=== PATIENT | female | born 1950 | race Caucasian/White ===

== ENCOUNTER 2020-03-01 19:02 | Inpatient (IN) | payer BC, MEDICARE, OTHER ==
[~2020-03-01] VITALS: Ht 154.9 cm; Wt 42.6 kg
[~2020-03-01 19:02] MED LIST: ACET325T53 PO; BACI3.5O23 EACHEYE; BISA10SU95 RC; MAGN400O6 PO; ONDA4VIA52 IV
--- NOTE | 2020-03-01 19:27 | NUR ---
at bedside for assessment
[2020-03-01] MEDS ORDERED: SENN-261 PO (19:31)
[2020-03-01] MEDS ORDERED: OLAN10TA23 PO (19:31)
[2020-03-01] MEDS ORDERED: LIDO1ADH44 TP (19:31)
[2020-03-01] MEDS ORDERED: DOCU100C36 PO (19:31)
[2020-03-01] MEDS ORDERED: MULT-594 PO (19:31)
[2020-03-01] MEDS ORDERED: HYDR-4354 PO (19:31)
[2020-03-01] MEDS ORDERED: OLAN5TAB3 PO (19:31)
--- NOTE | 2020-03-01 21:39 | NUR ---
Patient assisted to restroom at this time, no signs of acute distress noted at this time
[2020-03-01] MEDS ORDERED: MAGNESIUM HYDROXIDE 30 ML LIQUID UDC PO PRN (22:15)
[2020-03-01] MEDS ORDERED: BISACODYL 10 MG SUPP.RECT RC PRN (22:15)
--- NOTE | 2020-03-01 23:46 | NUR ---
Report given to [facility] RN, no signs of acute distress noted
[2020-03-02] MEDS ORDERED: ACETAMINOPHEN 325 MG TABLET PO SCH
[2020-03-02] MEDS ORDERED: ACETAMINOPHEN 325 MG TABLET PO PRN (00:15)
[2020-03-02] MEDS ORDERED: TEMAZEPAM 7.5 MG CAPSULE PO PRN (00:15)
[2020-03-02] MEDS ORDERED: MAG HYDROX/AL HYDROX/SIMETH 30 ML LIQUID UDC PO PRN (00:15)
[2020-03-02] MEDS ORDERED: MAGNESIUM HYDROXIDE 30 ML LIQUID UDC PO PRN (00:15)
--- NOTE | 2020-03-02 00:15 | NUR ---
Pt. admitted to [facility] psych , under care of Dr. Lott Belongs List completed and all belongings sent with patient
[2020-03-02 00:22] VITALS: BP 121/82
--- NOTE | 2020-03-02 00:30 | NUR ---
GPS ADMISSION NOTE: Patient is a 69 year old female, brought in to the Hospital by ambulance, admitted on a 5150 from [facility], prior to that , patient was living at home with her . Patient admitted on a 5150 for GD. Per hold, patient stopped eating , has not been taking medication and thinks that the food is poisonous. Upon face to face evaluation, this patient appears to be alert and oriented , when in fact she is confused. During the evaluation, patient would make statements about ' I need to go to the other hospital to let them fix my blood". When asked if she knows why she is here, patient stated " I am here to get my stomach fixed". Patient was then reoriented to the reality of the situation. Patients appearance is disheveled with uncombed hair and smells of urine. Shower was offered which patient adamantly refused at this time. Staff assisted patient to the bathroom to obtain a urine specimen. At that time patient claimed she could not walk, but seemed to be walking fine. Walker provided to patient for safety. During the interview process patient was delusional and paranoid. Sock Liner provided the Patients Rights Handbook and the Advisement. Oriented patient to the environment, phone and room. Orders received from the Psychiatrist Dr. Willis and the POPULATION HEALTH COACH for the Epic group Sandy Zee. Patients VS are stable, weight noted to be 95 lbs. Valuables are locked in the safe. Patient denies SI and HI. Monitoring patient for safety and any needs she might have. No acute behavioral issues at this time.
[2020-03-02 01:08] LABS: *BILIRUBIN,URIN NEGATIVE (NEGATIVE); *CLARITY,URINE CLEAR (CLEAR); *COLOR,URINE YELLOW (YELLOW); *KETONES,URINE NEGATIVE (NEGATIVE); LEUKOCYTE ESTERASE ,URINE NEGATIVE (NEGATIVE); NITRITE, URINE NEGATIVE (NEGATIVE); UGLUCOSE NEGATIVE (NEGATIVE)
[2020-03-02 01:23] LABS: *BLOOD, URINE TRACE INTACT (NEGATIVE)
[2020-03-02] MEDS ORDERED: CLONAZEPAM 0.5 MG TABLET PO PRN (02:00)
[2020-03-02 02:50] LABS: BACTERIA,URINE NONE SEEN /HPF (NONE SEEN); WBC,URINE 0-3 /HPF (0-3)
[2020-03-02 07:30] VITALS: BP 111/54
[2020-03-02 08:53] LABS: BASOPHILS % (AUTO) 0.5 % (0.0-2.0); EOSINOPHILS # (AUTO) 0.1 K/uL (0.0-0.7); EOSINOPHILS % (AUTO) 0.7 % (0.0-7.0); HEMATOCRIT 36.8 % (31.2-41.9); HEMOGLOBIN 13.6 g/dL (10.9-14.3); LYMPHOCYTES # (AUTO) 2.5 K/uL (20.0-40.0); LYMPHOCYTES % (AUTO) 34.8 % (20.5-51.5); MEAN CORPUSCULAR HEMOGLOBIN 31.8 uug (24.7-32.8); MEAN CORPUSCULAR HGB CONC 37 g/dL (32.3-35.6); MEAN CORPUSCULAR VOLUME 86.1 fL (75.5-95.3); MONOCYTES # (AUTO) 0.8 K/uL (2.0-10.0); MONOCYTES % (AUTO) 11.8 % (0.0-11.0); NEUTROPHILS # (AUTO) 3.7 K/uL (1.8-8.9); NEUTROPHILS % (AUTO) 52.2 % (38.5-71.5); PLATELET COUNT (AUTO) 413 K/uL (179-408); RED BLOOD CELL COUNT(AUTO) 4.27 MIL/uL (3.63-4.92); WHITE BLOOD COUNT (AUTO) 7.2 K/uL (3.8-11.8)
[2020-03-02] MEDS: MULTIVITAMINS,THERAPEUTIC TABLET PO SCH (09:00)
[2020-03-02] MEDS: DOCUSATE SODIUM 100 MG CAPSULE PO SCH (09:00)
[2020-03-02 09:10] LABS: CARBON DIOXIDE 30 mmol/L (21-32); CHLORIDE 104 mmol/L (98-107); CREATININE 0.8 mg/dL (0.6-1.3); GLUCOSE 98 mg/dL (74-106); MAGNESIUM 1.7 mg/dL (1.8-2.4); PHOSPHOROUS 4.2 mg/dL (2.5-4.9); POTASSIUM 2.9 mmol/L (3.5-5.1); UREA NITROGEN, BLOOD < 1 mg/dL (7-18)
[2020-03-02 09:19] LABS: THYROID STIMULATING HORMONE 0.627 mIU/mL (0.358-3.740)
--- NOTE | 2020-03-02 10:47 | NUR ---
Family Contact: SW called the pts , Johnathan ([phone]), and confirmed that the pt lives at home with him and that he would be able to pick her up at the time of discharge. SW informed him that she would be speaking to UR case management today and that she will get back to him regarding pts discharge date.
--- NOTE | 2020-03-02 10:56 | NUR ---
UR Note: BECCA called [facility] Senior Case Management Line ([phone]) regarding the pts review being due today. BECCA left a voicemail stating that she needs the assigned rn case manager hospice to call her so that the SW can conduct the pts review.
--- NOTE | 2020-03-02 11:46 | NUR ---
Initial Discharge Plan: Pt currently resides with her in their home located at [address] [place] [address]; ([phone]). Per pt, she would like to return to her home. SW will work with the pt and the MD regarding appropriate discharge planning. SW will form a safe and proper discharge.
[2020-03-02] MEDS: ENSURE ENLIVE (VAN) 240 ML LIQUID PO SCH ×2 (12:17→17:00)
[2020-03-02] MEDS ORDERED: POTASSIUM CHLORIDE 20 MEQ TAB.PRT.SR PO ONE (12:45)
[2020-03-02] MEDS ORDERED: MAGNESIUM OXIDE 400 MG TABLET PO ONE (12:45)
--- NOTE | 2020-03-02 14:21 | NUR ---
Firearms Report: Professional Services Specialist completed and submitted a [employer] firearms report for 5150 DTO/DTS/grave disability certification. A copy of report has been placed in patient chart.
--- NOTE | 2020-03-02 15:02 | NUR ---
Individual Intervention with the Pt: SW expressed to the pt that Dr. Willis does not think that her is the reason that she is being hospitalized. Pt has been screaming for the phone and has been stating that the MD thinks her is at fault and the SW repeatedly assured her that was not the case. SW asked the pt to listen to her and process what she is saying as she stated that the pt is not hospitalized due to her .
[2020-03-02 15:41] VITALS: BP 123/63
[2020-03-02] MEDS: OLANZAPINE ZYDIS 5 MG TAB.RAPDIS PO SCH ×2 (17:15→20:45)
[2020-03-02 20:39] VITALS: BP 110/50
--- NOTE | 2020-03-03 01:45 | NUR ---
Patient continue refusing Zyprexa [facility]. She was provided with education about the importance of taking prescribed medication to improved her sxs. we will continue to monitor. Addendum: 03/04/20 at 0149 by LIOR JACINTO RN wrong time. right time is 03/03/2020 at 2200
[2020-03-03 07:30] VITALS: BP 142/49
[2020-03-03] MEDS: ENSURE ENLIVE (VAN) 240 ML LIQUID PO SCH ×3 (09:00→17:00)
[2020-03-03] MEDS: OLANZAPINE ZYDIS 5 MG TAB.RAPDIS PO SCH ×2 (09:00→23:22)
[2020-03-03] MEDS: DOCUSATE SODIUM 100 MG CAPSULE PO SCH (09:00)
[2020-03-03] MEDS: MULTIVITAMINS,THERAPEUTIC TABLET PO SCH (09:00)
[2020-03-03] MEDS: POTASSIUM CHLORIDE 20 MEQ TAB.PRT.SR PO SCH ×6 (10:00→14:46)
--- NOTE | 2020-03-03 11:05 | NUR ---
UR Note: SW received a call from [facility] heel caser, Chelo ([phone]), who asked the SW to fax the pts clinical to the fax number: [phone]. She stated that she would call the SW back with an authorization update.
--- NOTE | 2020-03-03 11:06 | NUR ---
UR Note: BECCA faxed a clinical to Bola Juárez with attention to Chelo to the fax number: [phone].
--- NOTE | 2020-03-03 11:15 | NUR ---
Individual Intervention: SW attempted to speak to the pt after the SW heard the pt shouting, "Where is the big fat pig?" multiple times. Pt presented as rude and belligerent. SW was unable to engage with the pt at this time.
--- NOTE | 2020-03-03 11:30 | NUR ---
Family Contact: SW called the pts , Johnathan ([phone]), and informed him that the pt has not been taking her medications and SW asked if he can have a conversation with her as he is the only person that she trusts. Pts stated that this is her main issue and that is why she needs help. Pts then stated that he wants her to sign certain business documents and the SW stated that the pt cannot sign papers while she is on a hold at this time.
--- NOTE | 2020-03-03 11:40 | NUR ---
patient in bed complaining about pain, and verbalizes " i coudnt breath in" VS 124/51 P66 R20 PO2 98, patient states that the machine will tell normal, patient consistently complaining with pain however refusing all medication,calmly spoke with the patient and tried to calm her down, will continue monitor
[2020-03-03] MEDS ORDERED: MAGNESIUM OXIDE 400 MG TABLET PO ONE (12:45)
--- NOTE | 2020-03-03 13:28 | NUR ---
GPS: Nursing Notes: Non-compliance With Medications: Patient is awake and responding to her name, impaired judgement, continue with somatic complaints in order to refuse her medications and refusing to eat her meals, believes that we are trying to poison her, c/o of stomach upset, but refusing to take Mylanta, shouting at staff, "I am not going to take anything..", continue to be argumentative, at this time patient on bed resting, denies any discomfort or pain, V/S WNL, explained the pros or cons of her medication, but continue to refuse her medication, unable to formulate a viable plan for self care, resistant with nursing care, continue with treatment plan.
[2020-03-03 16:32] VITALS: BP 132/53
--- NOTE | 2020-03-03 20:00 | NUR ---
Received patient in bed. She is noted awake, A/O x 3. she is noted easily Irritable, tangental, uncooperative. Poor insight and judgment is noted as to the reason for her admission to [facility]. Pt denies SI/HI/VH/AH. V/S stable at this time. Pt is reassured for her safety. safety and fall precaution in place. will continue to monitor.
[2020-03-03 20:01] VITALS: BP 118/50
--- NOTE | 2020-03-03 22:00 | NUR ---
Patient continue refusing Zyprexa QHS. She was provided with education about the importance of taking prescribed medication to improved her sxs. we will continue to monitor.
--- NOTE | 2020-03-03 22:25 | NUR ---
Patient called this gag writer and stated, "Bring the medication, I will take it. I know if i don't take it I will be in more trouble". patient was able to comply with Risperdal QHS. will continue to monitor.
[2020-03-04 07:30] VITALS: BP 120/51
[2020-03-04 08:59] LABS: MAGNESIUM 1.8 mg/dL (1.8-2.4); POTASSIUM 3.4 mmol/L (3.5-5.1)
[2020-03-04] MEDS: ENSURE ENLIVE (VAN) 240 ML LIQUID PO SCH ×3 (09:00→17:00)
[2020-03-04] MEDS: MULTIVITAMINS,THERAPEUTIC TABLET PO SCH (09:00)
[2020-03-04] MEDS: DOCUSATE SODIUM 100 MG CAPSULE PO SCH (09:00)
[2020-03-04] MEDS: OLANZAPINE ZYDIS 5 MG TAB.RAPDIS PO SCH ×2 (09:00→21:00)
--- NOTE | 2020-03-04 10:47 | NUR ---
UR Note: SW received a call from [facility] case loader operator, Chelo ([phone]), and she stated that she will authorize until 03/05/20 with a review due on 03/06/20 if needed.
[2020-03-04] MEDS ORDERED: POTASSIUM CHLORIDE 20 MEQ TAB.PRT.SR PO ONE (11:15)
[2020-03-04 16:00] VITALS: BP 111/72
--- NOTE | 2020-03-04 20:00 | NUR ---
Received patient in her room in bed. She is noted awake A/O x 2. She is noted easily irritable, verbally aggressive, paranoid ideation, pt stated, "They gave me rotten fish today and that is why i fee very bad". "why they do that". Patient was reassured and redirected. she is hard to redirect. Mood is irritable, affect is blunted. V/S stable. patient is reassured for her safety. safety and fall precaution in place. will continue to monitor.
[2020-03-04 20:05] VITALS: BP 118/44
--- NOTE | 2020-03-04 22:15 | NUR ---
Pt. continue refusing Zyprexa 5mg QHS Pt was provided with education about the important of taking prescribed medication to improve SXS. however, she continue refusing. she continue fixed about been given rotten fish for dinner. Pt is reassured for her safety and redirected. will continue to monitor.
--- NOTE | 2020-03-05 07:13 | NUR ---
Patient slept for approx 6.30 hrs through the night. continue easily irritable. fixed on someone given rotten fish for dinnjer. pt is reassured. will continue to monitor.
[2020-03-05 07:30] VITALS: BP 140/69
[2020-03-05] MEDS: ENSURE ENLIVE (VAN) 240 ML LIQUID PO SCH ×3 (09:00→17:00)
[2020-03-05] MEDS: DOCUSATE SODIUM 100 MG CAPSULE PO SCH (09:00)
[2020-03-05] MEDS: OLANZAPINE ZYDIS 5 MG TAB.RAPDIS PO SCH ×3 (09:00→21:51)
[2020-03-05] MEDS: MULTIVITAMINS,THERAPEUTIC TABLET PO SCH (09:00)
[2020-03-05] MEDS ORDERED: OLANZAPINE 10 MG VIAL IM PRN (12:00)
--- NOTE | 2020-03-05 13:45 | NUR ---
Gps/Radiologic Technician- Labile mood, loud yelling at the web content writer , reoffered her zyprexa zydis as previously schedules this am, , refusing to take IM zyprexa" i will nener take any injections from an evil person like you", reviewed with pt. improtance of her medication . Refusing to eat , claimed her stomach hurts, because staff are forcing her to eat spoiled rotten foods , per pt. Patient curled up in bed, claimed r/t to stomach pain, offered foods she wants , claimed will note eat or take anything from the web content writer.
[2020-03-05 16:24] VITALS: BP 143/65
--- NOTE | 2020-03-05 17:48 | NUR ---
Gps/Corporate Trainer- Remains in bed. refusing to eat., refusing routine meds.
--- NOTE | 2020-03-06 05:20 | NUR ---
Received patient last night in the bed, complaining about the food being poisoned, and the medications are " Making a big sore in my mouth". Patient was offered a snack but rejected it. After some time , patient did take the psychiatric medication but was angry and irritable the whole time . Patient was calling inspector automatic typewriter and other staff members names. This patient appears to be very delusional and paranoid at this time. Continuing to monitor for safety, food intake and medication compliance. No acute distress.
[2020-03-06 07:30] VITALS: BP 139/58
[2020-03-06] MEDS: ENSURE ENLIVE (VAN) 240 ML LIQUID PO SCH ×3 (08:48→17:00)
[2020-03-06] MEDS: DOCUSATE SODIUM 100 MG CAPSULE PO SCH (08:48)
[2020-03-06] MEDS: MULTIVITAMINS,THERAPEUTIC TABLET PO SCH (08:48)
[2020-03-06] MEDS: OLANZAPINE ZYDIS 5 MG TAB.RAPDIS PO SCH ×2 (09:21→20:23)
--- NOTE | 2020-03-06 11:39 | NUR ---
UR Note: BECCA faxed a clinical to [facility]ola Juárez with attention to Chelo to the fax number: [phone].
[2020-03-06 15:20] VITALS: BP 99/48
[2020-03-06 19:52] VITALS: BP 117/46
--- NOTE | 2020-03-07 03:05 | NUR ---
Received patient in her room, complaining about the food , the care and just about everything she could think of. Patient was however compliant with her Psychiatric medication only ,but it was 30 minutes of paranoia and delusional talking to achieve the goal. Patient yells at staff and refuses to get out of bed to the chair or to use the bathroom. Continuing to encourage self care and ambulation. Monitoring behavior escalation and safety. No acute issues at this time. Appetite is poor, but did improve slightly today.
[2020-03-07 07:30] VITALS: BP 122/51
[2020-03-07] MEDS: OLANZAPINE ZYDIS 5 MG TAB.RAPDIS PO SCH ×2 (08:15→20:29)
[2020-03-07] MEDS: DOCUSATE SODIUM 100 MG CAPSULE PO SCH (09:00)
[2020-03-07] MEDS: ENSURE ENLIVE (VAN) 240 ML LIQUID PO SCH ×3 (09:00→17:00)
[2020-03-07] MEDS: MULTIVITAMINS,THERAPEUTIC TABLET PO SCH (09:00)
--- NOTE | 2020-03-07 10:52 | NUR ---
Received patient in her room, grumpy, paranoid and having delusional thought of that the medication giving her some side effect that making her shaking, however with her VS WNL BP 122/51, P 66 R 18 T 98, patient needed prompting , however refused other medication like vitamins patient also refused her breakfast but said that she ate dinner and lunch yesterday, MD aware, will continue monitor
--- NOTE | 2020-03-07 12:50 | NUR ---
Patient getting anxious don't want her medication to be change , patient is argumentative, patient complaining of having stomach pain, but refusing to eat, patient believes that the food makes her sick , patient wants the remote mortgage underwriter not to write the notes
[2020-03-07 16:00] VITALS: BP 142/43
--- NOTE | 2020-03-07 18:03 | NUR ---
patient ate 75% of her dinner tray however still verbalizing that she is being poisoned and ask the nurse to smell the soup , patient is shouting and yelling needs redirection and prompting
[2020-03-07 20:00] VITALS: BP 107/71
--- NOTE | 2020-03-08 04:10 | NUR ---
Received patient at the beginning of the shift laying in bed. As sheet writer approached the patient, she begun with the delusions. Making statements " The soup was poisoned with bug spray. I ate it and now I am going to ". This kind of banter continued for a while and when sheet writer attempted to redirect and distract the patient from her fixed delusions, patient begun to yell " You do not know what your talking about. Get your stories straight kristen". Junior Copywriter proceeded to encourage medication compliance and eventually the patient took the Psychiatric medication only. Monitoring this patients behavior escalation, medication compliance and for safety at this time. Patient did proceed to sleep a good portion of the night after that.
[2020-03-08 07:30] VITALS: BP 110/63
[2020-03-08] MEDS: OLANZAPINE ZYDIS 5 MG TAB.RAPDIS PO SCH ×2 (08:41→21:14)
[2020-03-08] MEDS: MULTIVITAMINS,THERAPEUTIC TABLET PO SCH (08:42)
[2020-03-08] MEDS: DOCUSATE SODIUM 100 MG CAPSULE PO SCH (08:42)
[2020-03-08] MEDS: ENSURE ENLIVE (VAN) 240 ML LIQUID PO SCH ×3 (08:42→17:00)
[2020-03-08 15:14] VITALS: BP 93/63
--- NOTE | 2020-03-08 20:00 | NUR ---
Received patient in her room. She is noted awake A/O x 3. She is noted easily irritable, sarcastic, suspicious, paranoid, guarded, yelling a times. Upon interview, She stated, "They gave me crab for dinner and it was bad, it made me sick". Patient requires multiple redirections and reassurance. V/S stable. She is being reassured for her safety. V/S stable. safety and fall precaution in place. will continue to monitor.
[2020-03-08 20:10] VITALS: BP 108/53
[2020-03-09 07:30] VITALS: BP 117/66
--- NOTE | 2020-03-09 07:36 | NUR ---
patient slept for approx 7 hrs through the night. She refused Blood Drawn. pt was educated on the importance of labs, yet refused. will attempt later.
[2020-03-09] MEDS: OLANZAPINE ZYDIS 5 MG TAB.RAPDIS PO SCH ×2 (08:38→20:17)
[2020-03-09] MEDS: MULTIVITAMINS,THERAPEUTIC TABLET PO SCH (08:38)
[2020-03-09] MEDS: DOCUSATE SODIUM 100 MG CAPSULE PO SCH (08:38)
[2020-03-09] MEDS: ENSURE ENLIVE (VAN) 240 ML LIQUID PO SCH ×3 (08:39→17:14)
--- NOTE | 2020-03-09 09:38 | NUR ---
UR Note: SW received a call from [facility] case making machine operator, Chelo ([phone]) and sent pt's clinicals.
[2020-03-09 14:41] LABS: BASOPHILS % (AUTO) 0.5 % (0.0-2.0); EOSINOPHILS # (AUTO) 0.1 K/uL (0.0-0.7); EOSINOPHILS % (AUTO) 1.5 % (0.0-7.0); HEMATOCRIT 42.1 % (31.2-41.9); HEMOGLOBIN 14.4 g/dL (10.9-14.3); LYMPHOCYTES # (AUTO) 2.3 K/uL (20.0-40.0); LYMPHOCYTES % (AUTO) 46.5 % (20.5-51.5); MEAN CORPUSCULAR HEMOGLOBIN 30.3 uug (24.7-32.8); MEAN CORPUSCULAR HGB CONC 34 g/dL (32.3-35.6); MEAN CORPUSCULAR VOLUME 89.1 fL (75.5-95.3); MONOCYTES # (AUTO) 0.6 K/uL (2.0-10.0); MONOCYTES % (AUTO) 11.7 % (0.0-11.0); NEUTROPHILS # (AUTO) 1.9 K/uL (1.8-8.9); NEUTROPHILS % (AUTO) 39.8 % (38.5-71.5); PLATELET COUNT (AUTO) 233 K/uL (179-408); RED BLOOD CELL COUNT(AUTO) 4.73 MIL/uL (3.63-4.92); WHITE BLOOD COUNT (AUTO) 4.9 K/uL (3.8-11.8)
[2020-03-09 15:21] LABS: BILIRUBIN,TOTAL 0.4 mg/dL (0.2-1.0); CREATININE 0.8 mg/dL (0.6-1.3); MAGNESIUM 2.4 mg/dL (1.8-2.4)
--- NOTE | 2020-03-09 18:50 | NUR ---
patient still needed prompting with her medication,remains agitated at time,will continue close monioring.
[2020-03-09 20:36] VITALS: BP 111/54
[2020-03-10 07:30] VITALS: BP 131/77
[2020-03-10] MEDS: OLANZAPINE ZYDIS 5 MG TAB.RAPDIS PO SCH ×2 (08:28→21:59)
[2020-03-10] MEDS: DOCUSATE SODIUM 100 MG CAPSULE PO SCH (09:00)
[2020-03-10] MEDS: MULTIVITAMINS,THERAPEUTIC TABLET PO SCH (09:00)
[2020-03-10] MEDS: ENSURE ENLIVE (VAN) 240 ML LIQUID PO SCH ×3 (09:00→16:41)
--- NOTE | 2020-03-10 11:11 | NUR ---
UR Note: SW received a call from [facility] case liner, Chelo ([phone]) authorized until 03/15/2020 and will require clinical review.
[2020-03-10 16:30] VITALS: BP 126/79
--- NOTE | 2020-03-10 16:57 | NUR ---
patient still needed prompting with her medication,only took Zyprexa Zydis remains agitated at time,will continue close monitoring.
[2020-03-10] MEDS: BOOST PLUS 237 ML LIQUID (RICH CHOCOLATE) PO SCH (17:00)
[2020-03-10 20:12] VITALS: BP 108/56
--- NOTE | 2020-03-10 23:03 | NUR ---
GPS: Pt.remains with poor intake/appetite. Less irritable when approached but continues to look suspicious and paranoid. Took bedtime med.as ordered with little persuasion from staff. Fall precautions observed. Will continue to monitor behavior.
[2020-03-11 07:30] VITALS: BP 131/72
[2020-03-11] MEDS: BOOST PLUS 237 ML LIQUID (RICH CHOCOLATE) PO SCH ×3 (08:00→17:00)
[2020-03-11] MEDS: OLANZAPINE ZYDIS 5 MG TAB.RAPDIS PO SCH ×2 (08:30→21:43)
[2020-03-11] MEDS: ENSURE ENLIVE (VAN) 240 ML LIQUID PO SCH ×3 (08:33→17:14)
[2020-03-11] MEDS: MULTIVITAMINS,THERAPEUTIC TABLET PO SCH (08:33)
[2020-03-11] MEDS: DOCUSATE SODIUM 100 MG CAPSULE PO SCH (08:33)
[2020-03-11 16:00] VITALS: BP 129/78
--- NOTE | 2020-03-11 18:15 | NUR ---
patient is irritable took zyprexa only, Remains isolative and withdrawn. up to daisy-chairNo plan to hurt self.
[2020-03-11 20:25] VITALS: BP 119/63
[2020-03-11] MEDS: MIRTAZAPINE 15 MG TABLET PO SCH (21:43)
--- NOTE | 2020-03-11 22:25 | NUR ---
Patient still requires prompting with her medication,remains agitated and easily irritable. will continue to monitor.Remains isolative and withdrawn. Patient denies SI will continue to monitor.
[2020-03-12 07:30] VITALS: BP 130/73
[2020-03-12] MEDS: BOOST PLUS 237 ML LIQUID (RICH CHOCOLATE) PO SCH ×3 (08:00→17:00)
[2020-03-12] MEDS: DOCUSATE SODIUM 100 MG CAPSULE PO SCH (08:54)
[2020-03-12] MEDS: ENSURE ENLIVE (VAN) 240 ML LIQUID PO SCH ×3 (08:54→17:00)
[2020-03-12] MEDS: MULTIVITAMINS,THERAPEUTIC TABLET PO SCH (08:54)
[2020-03-12] MEDS: OLANZAPINE ZYDIS 5 MG TAB.RAPDIS PO SCH ×2 (08:59→21:57)
--- NOTE | 2020-03-12 12:41 | NUR ---
UR Note: SW received a call from [facility] rehabilitation case coordinator, Chelo ([phone]) authorized for two days. Auth #[id number]
--- NOTE | 2020-03-12 12:59 | NUR ---
Gps/Food And Beverage Order Clerk-Patient talking to her on the phone telling him, staff is giving her poison drinks. Encouraged to drink more fluids, claimed oral mucosa very dry . , complained that STARCH TREATING ASSISTANT scrubbing her gums/teeth hard that peeling her enamel from her teeth. Good oral care was encouraged and rendered, Showered patient this am, kept up on her chair, ate lunch small amount but able to eat her ice cream Safety reviewed emphasized..
[2020-03-12 16:10] VITALS: BP 121/58
[2020-03-12 20:00] VITALS: BP 128/63
[2020-03-12] MEDS: MIRTAZAPINE 15 MG TABLET PO SCH (21:00)
[2020-03-13 07:30] VITALS: BP 107/65
[2020-03-13] MEDS: BOOST PLUS 237 ML LIQUID (RICH CHOCOLATE) PO SCH ×3 (08:00→12:56)
--- NOTE | 2020-03-13 08:50 | NUR ---
Gps/Truck Unloader- Asleep, awakened for breakfast, claimed not hungry will try to eat in a while . Routine am meds. refused, , will re- offer after breakfast.
[2020-03-13] MEDS: DOCUSATE SODIUM 100 MG CAPSULE PO SCH (09:00)
[2020-03-13] MEDS: ENSURE ENLIVE (VAN) 240 ML LIQUID PO SCH ×3 (09:00→17:19)
[2020-03-13] MEDS: MULTIVITAMINS,THERAPEUTIC TABLET PO SCH (09:00)
[2020-03-13] MEDS: OLANZAPINE ZYDIS 5 MG TAB.RAPDIS PO SCH ×2 (09:53→20:29)
--- NOTE | 2020-03-13 09:58 | NUR ---
BECCA Coordination of Care: Patient will be following up with primary care physician at [address] [address] ([phone]) with Daniella Silvestre and has an appointment scheduled on 03/17/20 at 12:30pm via telehealth and will manage the patients psychotropic medications and will refer the patient for outpatient psychiatry.
--- NOTE | 2020-03-13 12:12 | NUR ---
UR Note: BECCA sent clinicals [facility] onsite case manager, Chelo ([phone]) for review and left a voicemail. Auth #[id number]
--- NOTE | 2020-03-13 13:04 | NUR ---
SW Family Contact: This insurance underwriter spoke with pt's Johnathan ([phone]) and discussed discharge and treatment plan. agreed to crop picker pt Friday 03/16 at 12PM.
[2020-03-13 16:00] VITALS: BP 126/67
--- NOTE | 2020-03-13 17:00 | NUR ---
Gps/Power Shovel Operator Helper- remains isolative, stays in bed most of the day, refused to attend her group, prompted and encouraged to take her routine meds. remains paranoid about her foods, and liquids. someone is trying to put poison, has bitter taste, he stomach hurts per pt.encouraged to eat, food of her choice was offered., ref.
[2020-03-13 20:00] VITALS: BP 100/73
[2020-03-13] MEDS: MIRTAZAPINE 15 MG TABLET PO SCH (20:32)
--- NOTE | 2020-03-13 22:00 | NUR ---
PATIENT WAS ABLE TO COMPLY WITH ZYPREXA 10MG PO QHS (PT IS REISE). HOWEVER, SHE CONTINUE REFUSING REMERON 15MG PO PRN. SHE CONTINUE WITH PARANOID IDEATION THAT STAFF IS TRYING TO POISON HER. PT REQUIRED MULTIPLE REDIRECTIONS AND REASSURANCE. PO FLUIDS AND SNACKS WERE OFFERED, PT ONLY TOOK SOME WATER. WILL CONTINUE TO MONITOR.
[2020-03-14 07:30] VITALS: BP 121/71
[2020-03-14] MEDS: BOOST PLUS 237 ML LIQUID (RICH CHOCOLATE) PO SCH ×3 (08:00→17:00)
[2020-03-14] MEDS: MULTIVITAMINS,THERAPEUTIC TABLET PO SCH (09:00)
[2020-03-14] MEDS: DOCUSATE SODIUM 100 MG CAPSULE PO SCH (09:00)
[2020-03-14] MEDS: ENSURE ENLIVE (VAN) 240 ML LIQUID PO SCH ×3 (09:00→17:00)
[2020-03-14] MEDS: OLANZAPINE ZYDIS 5 MG TAB.RAPDIS PO SCH ×2 (10:17→21:06)
--- NOTE | 2020-03-14 12:16 | NUR ---
PT LYING IN BED AT THIS TIME SPEAKING TO ON THE PHONE. PT IS REQUESTING A NEW WATER BOTTLE. INFORMED PT THAT THEIR ARE 5 WATER BOTTLES ON HER TABLE, ALL ALMOST BRAND NEW WITH MAYBE A SIP TAKEN FROM EACH ONE, AND WE CANNOT KEEP GIVING HER WATER BOTTLES WHEN THEIR ARE MULTIPLE BOTTLES AVAILABLE TO HER ON HER TABLE. PT REMAINS PARANOID, INSISTING STAFF IS POISONING HER. PT GAVE THE PHONE TO THIS EMERGENCY MEDICINE SPECIALIST TO SPEAK TO HER . PT'S BEGAN YELLING AT EMERGENCY MEDICINE SPECIALIST, STATING "JUST GIVE HER A NEW ONE! I'LL PAY FOR IT!" INFORMED TO THE WE CANNOT KEEP GIVING PT A NEW BOTTLE EVERY TIME PT TAKES A SIP OF ONE. PT'S THEN THREATENED TO CALL THE POLICE. NURSING ENVIRONMENTAL INSPECTOR AWARE.
--- NOTE | 2020-03-14 13:20 | NUR ---
Pt is noted to be paranoid and believing food and drinks are contaminated. pt has been opening water bottles and then asking the staff for other water bottles saying the water is old and has been open for days. Patient was given a fresh bottle water with date and time marked.
[2020-03-14 16:36] VITALS: BP 122/54
[2020-03-14 20:00] VITALS: BP 116/45
--- NOTE | 2020-03-14 20:00 | NUR ---
patient c/o gen: pain 3/10 pain level. offered pain meds. but patient refused pain medication.
[2020-03-14] MEDS: MIRTAZAPINE 15 MG TABLET PO SCH (21:06)
--- NOTE | 2020-03-15 05:32 | NUR ---
GPS: Patient remains isolative and paranoid about her foods and medications stated someone is trying to put poison my food. uses bedpan. kept clean and dry. refused shower this morning. continue plan of care.
--- NOTE | 2020-03-15 05:53 | NUR ---
slept 8 hrs through the night.
[2020-03-15 07:48] VITALS: BP 112/71
[2020-03-15] MEDS: BOOST PLUS 237 ML LIQUID (RICH CHOCOLATE) PO SCH ×3 (08:00→17:00)
[2020-03-15] MEDS: ENSURE ENLIVE (VAN) 240 ML LIQUID PO SCH ×6 (08:17→17:00)
[2020-03-15] MEDS: OLANZAPINE ZYDIS 5 MG TAB.RAPDIS PO SCH ×2 (08:17→21:55)
[2020-03-15] MEDS: MULTIVITAMINS,THERAPEUTIC TABLET PO SCH (08:18)
[2020-03-15] MEDS: DOCUSATE SODIUM 100 MG CAPSULE PO SCH (08:18)
[2020-03-15 16:48] VITALS: BP 111/63
[2020-03-15 21:00] VITALS: BP 98/47
[2020-03-15] MEDS: MIRTAZAPINE 15 MG TABLET PO SCH (21:00)
[2020-03-15 21:27] VITALS: BP 132/64
--- NOTE | 2020-03-16 06:51 | NUR ---
GPS: Pt.slept for 7 hrs.last night. Remains paranoid,suspicious and continues to refuse most of meals served. Refused fluids/snacks when encouraged. Thinks food is poisonous. Argumentative with staff when being re-directed and encouraged. Safe environment provided.
[2020-03-16 07:30] VITALS: BP 121/85
[2020-03-16] MEDS: BOOST PLUS 237 ML LIQUID (RICH CHOCOLATE) PO SCH ×2 (08:00→12:00)
[2020-03-16] MEDS: OLANZAPINE ZYDIS 5 MG TAB.RAPDIS PO SCH (08:13)
--- NOTE | 2020-03-16 08:18 | NUR ---
received patient on her Bed, looks unkept, irritable, patient not touching her meal tray, compliant with her psych medication only, patient was ask if she still feels that she is being poisoned , verbalizes " leave me alone i don't want to answer that and patient refused her breakfast, will continue monitor
--- NOTE | 2020-03-16 08:32 | NUR ---
SW Discharge Note: Patient will be discharged back home [address], [place] [address]; ([phone]) Patients Bobby ([phone]) will pick up and delivery driver pt at 12PM. Upon discharge, patient appears to be calm, cooperative and happy to be going back home. Patient appeared alert and oriented x2-3. Patient denies suicidal and homicidal ideation. Patient will be following up [place] [address] ([phone]) with Daniella Silvestre and has an appointment scheduled on 03/17/20 at 12:30PM via telehealth and will manage the patients psychotropic medications and will refer the patient for outpatient psychiatry. Patient presents with euthymic mood and congruent affect.
[2020-03-16] MEDS: MULTIVITAMINS,THERAPEUTIC TABLET PO SCH (09:00)
[2020-03-16] MEDS: DOCUSATE SODIUM 100 MG CAPSULE PO SCH (09:00)
[2020-03-16] MEDS: ENSURE ENLIVE (VAN) 240 ML LIQUID PO SCH (09:00)
--- NOTE | 2020-03-16 09:31 | NUR ---
called in patient discharge's prescriptions to patient's pharmacy @ [phone].
[2020-03-16] MEDS ORDERED: MIRTAZAPINE 15 MG TABLET PO ONE (09:34)
--- NOTE | 2020-03-16 10:26 | NUR ---
PATIENT SIGNED HER DISCHARGE PAPERS AND VALUABLES, PATIENT WALKS TOWARDS THE NURSING STATION, STEADILY, PATIENT HAVING PARANOID THOUGHTS ON THE PAPERS BUT STILL SIGNED HER PAPERS, PATIENT DENIES SI AND HI, CALM COOPERATIVE AT THIS TIME
--- NOTE | 2020-03-16 10:53 | NUR ---
UR Note: BECCA sent clinicals [facility] case liner, Chelo ([phone]) and stated she had authorized for the weekend and apologized because she was busy. This mortgage underwriter sent clinicals. Auth #[id number]
--- NOTE | 2020-03-16 12:06 | NUR ---
GAVE DISCHARGE INSTRUCTION TO , PATIENT ASK ABOUT MEDICATION, TOLD THAT THE MEDICATION WAS CALLED IN TO THE PHAARMACY AND READY TO BE CRISIS WORKER, GOT IRRITATED AND THROW BELONGINGS INSIDE THE CAR AND GRAB THE PATIENT TO HIS CAR, INFORM INCIDENT TO THE SW AND SPOKE WITH MD REGARDING THE DC
--- NOTE | 2020-03-16 13:27 | NUR ---
SW Family Contact: This fiction and nonfiction prose writer contacted pt's Johnathan ([phone]) to follow-up on nurses concern when dropping pt off with hushand. Johnathan was unavailable and this fiction and nonfiction prose writer left a voicemail.
== END 2020-03-16 12:10 | disposition home or self-care (01) | DRG 885 ==
LOC: ER 19:15 → GPS 22:10
PROVIDERS: ADMIT Psychiatry & Neurology Psychiatry; ATTEND Registered Nurse
DX: F29 Unspecified psychosis not due to a substance or known physiological condition (principal); E43 Unspecified severe protein-calorie malnutrition; Z68.1 Body mass index [BMI] 19.9 or less, adult; F23 Brief psychotic disorder; R62.7 Adult failure to thrive; F03.90 Unspecified dementia, unspecified severity, without behavioral disturbance, psychotic disturbance, mood disturbance, and anxiety; Z91.19 Patient's noncompliance with other medical treatment and regimen; K21.9 Gastro-esophageal reflux disease without esophagitis; E87.6 Hypokalemia; Z95.0 Presence of cardiac pacemaker; G89.29 Other chronic pain
CPT/HCPCS: 36415; 71045; 83735; 84100; 84132; 84443; 85025; 87086; 93005; A4663